=== PATIENT | female | born 1950 | race Caucasian/White ===

== ENCOUNTER → 2016-06-22 | Outpatient (CLI) | payer BC ==
[~2016-06-22] MED LIST: ACET-24 PO; AMLO-110 PO; ASCO250T5 PO; ASPEC81 PO; ATOR-24 PO; CHOL400C7 PO; CHOLTAB3 PO; CYAN250T PO; GLC/500 PO; LEVO88TA3 PO; LISI40TA PO; MULT-506 PO; RXC5 PO; SIMV40TA2 PO; SNK PO; TRAM-453 PO
[2016-06-22 15:18] LABS: CALCIUM 9.8 mg/dl (8.5-10.1)
[2016-06-22 15:20] LABS: ALB/GLOB RATIO 1.3 (0.9-2); ALKALINE PHOSPHATASE 69 U/L (45-117); ALT/SGPT 25 U/L (12-78); AST/SGOT 17 U/L (15-37); BLOOD UREA NITROGEN 16 mg/dl (7-18); BUN/CREATININE RATIO 15.9 (10-20); CARBON DIOXIDE 31 mmol/L (21-32); CHLORIDE 102 mmol/L (98-107); GLUCOSE 100 mg/dl (70-99); SODIUM 141 mmol/L (136-145)
[2016-06-22 15:21] LABS: ESTIMATED AVERAGE GLUCOSE 120 mg/dl; HA1C FLAG Normal (Normal)
[2016-06-22 15:31] LABS: THYROID STIMULATING HORMONE 0.805 uIu/ml (0.300-4.500)
== END | disposition home or self-care (01) ==
LOC: C.LABBC 11:02
PROVIDERS: ATTEND Family Medicine
DX: E11.9 Type 2 diabetes mellitus without complications (principal); I10 Essential (primary) hypertension; E03.9 Hypothyroidism, unspecified

== ENCOUNTER → 2016-07-01 | Outpatient (CLI) | payer BC | END | disposition home or self-care (01) | LOC: C.PAPS 15:20 | PROVIDERS: ATTEND Obstetrics & Gynecology | DX: Z12.4 Encounter for screening for malignant neoplasm of cervix (principal) ==

== ENCOUNTER 2016-10-13 10:16 | Inpatient (IN) | payer OTHER, BC ==
[~2016-10-13] VITALS: Ht 167.6 cm; Wt 77.9 kg
[~2016-10-13 10:16] MED LIST changes: -ACET-24 PO; -ASPEC81 PO; -ATOR-24 PO; -CHOL400C7 PO; -CYAN250T PO; -RXC5 PO; -SNK PO; -TRAM-453 PO
[2016-10-13] MEDS ORDERED: MoRPHine SULFATE 4 MG/ML 1 ML CARP\\VIAL IV STA (10:37)
[2016-10-13] MEDS ORDERED: CHOL400C7 PO (10:40)
[2016-10-13 10:48] LABS: BASO % 0.3 %; BASO ABS # 0.02 K/uL (0-0.2); COMPLETE YES; EOS % 1.4 %; HEMATOCRIT 38.5 % (37-47); IG% 0.5 %; LYMPH % 33.6 %; LYMPH ABS # 2.55 K/uL (1.2-3.4); MEAN CELL VOLUME 90.4 fL (80-100); MEAN CORPUSCULAR HGB CONC 33.2 g/dl (32-36); MEAN PLATELET VOLUME 10.2 fL (7.4-10.4); MONO % 6.5 %; NEUT % 57.7 %; PLATELET COUNT 285 K/uL (130-400); RED BLOOD COUNT 4.26 M/uL (4.2-5.4); WHITE BLOOD COUNT 7.59 K/uL (4.8-10.8)
[2016-10-13 10:55] LABS: PROTHROMBIN TIME (PATIENT) 10.6 SECONDS (9.0-12.0)
[2016-10-13 10:59] LABS: CALCIUM 9.4 mg/dl (8.5-10.1); CREATININE 1.1 mg/dl (0.60-1.20); POTASSIUM 3.9 mmol/L (3.5-5.1)
--- NOTE | 2016-10-13 11:02 | EMERGENCY ROOM VISIT NOTE ---
History Report prepared by Jacques: Jodi Chairez Under the Supervision of: Dr. Alex Chauhan M.D. First contact with patient: 10:23 Chief Complaint: HIP PAIN Stated Complaint: LT HIP PAIN/ S/P FALL History of Present Illness The patient is a 66 year old female who presents to the Emergency Room with complaints of an episode of left hip pain starting an hour ago. 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 The patient states that she then fell onto her left side on the concrete. The patient states that movement worsens her pain. She states that she was unable to walk after the fall. She currently rates her pain as a 6/10 in severity. The patient denies loss of consciousness, abdominal pain, numbness, tingling, weakness, and being on any blood thinners. Source of History: patient Onset: an hour ago Position: other (left hip) Symptom Intensity: 6/10 Timing: other (episode) Modifying Factors (Worsening): movement Associated Symptoms: No LOC, No abdominal pain, No weakness, No numbness Note: The patient denies tingling and taking blood thinners. Review of Systems See HPI for pertinent positives and negatives. A total of ten systems were reviewed and were otherwise negative. Past Medical & Surgical Medical Problems: (1) Diabetes (2) Herniated disc (3) Hip fracture (4) HTN (hypertension) (5) Hypothyroid (6) TIA (transient ischemic attack) Surgical Problems: (1) Hx of cholecystectomy Family History No pertinent family history Social History Smoking Status: Former Smoker Smokeless Tobacco Use: No Alcohol Use: none Drug Use: none Marital Status: Housing Status: lives with family Occupation Status: other Current/Historical Medications Scheduled Amlodipine (Norvasc), 5 MG PO DAILY Ascorbic Acid (Ascorbic Acid), 250 MG PO DAILY Cholecalciferol (Vitamin D 400 Iu), 400 INTER.UNIT PO DAILY Levothyroxine Sodium (Levothyroxine Sodium), 88 MCG PO DAILY Lisinopril (Zestril), 40 MG PO DAILY Metformin Hcl (Glucophage), 1,000 MG PO BID Multivitamin (Multivitamin), 1 TAB PO DAILY Simvastatin (Zocor), 40 MG PO QPM Allergies Coded Allergies: No Known Allergies (Verified , 10/13/16) Physical Exam Vital Signs Date Time Temp Pulse Resp B/P (MAP) Pulse Ox O2 Delivery O2 Flow Rate FiO2 10/13/16 12:13 91 18 148/91 98 Room Air 10/13/16 11:10 81 16 148/91 100 Room Air 10/13/16 10:23 37.1 82 18 148/91 100 Room Air Physical Exam GENERAL: Awake, alert, well-appearing, NAD HENT: Normocephalic, atraumatic. No ecchymosis. EYES: Normal conjunctiva. Sclera non-icteric. EOM intact. NECK: Supple. No nuchal rigidity. FROM. No midline c-spine tenderness. RESPIRATORY: CTAB, no rhonchi, wheezing, crackles CARDIAC: RRR, no MRG ABDOMEN: Soft, NTND, BS+ MSK: No chest wall TTP, no LE edema. Mild left sided hip tenderness. Pain in hip with internal rotation. SPDP tib nerves intact ot sensory and motor. 2+ DP pulse. No other signs of trauma present. No ttp else where. NEURO: GCS 15, CN 2-12 intact, moves all 4s on command SKIN: No rash or jaundice noted. Medical Decision & Procedures ER Provider Diagnostic Interpretation: Radiology results as stated below per my review and radiologist interpretation: LEFT PELVIS/UNILATERAL HIP 2-3VIEWS CLINICAL HISTORY: L sided hip pain s/p fall COMPARISON STUDY: None. FINDINGS: Left femoral neck fracture with mild superior displacement. No dislocation. The visualized pelvic bones and right hip are intact. IMPRESSION: Slightly displaced left femoral neck fracture. Electronically signed by: Maciel Naik M.D. 10/13/2016 11:01 AM Dictated Date/Time: 10/13/2016 10:59 AM Laboratory Results 10/13/16 10:26 Red Blood Count 4.26, Mean Corpuscular Volume 90.4, Mean Corpuscular Hemoglobin 30.0, Mean Corpuscular Hemoglobin Concent 33.2, Mean Platelet Volume 10.2, Neutrophils (%) (Auto) 57.7, Lymphocytes (%) (Auto) 33.6, Monocytes (%) (Auto) 6.5, Eosinophils (%) (Auto) 1.4, Basophils (%) (Auto) 0.3, Neutrophils # (Auto) 4.38, Lymphocytes # (Auto) 2.55, Monocytes # (Auto) 0.49, Eosinophils # (Auto) 0.11, Basophils # (Auto) 0.02 10/13/16 10:26 Test 10/13/16 10:26 10/13/16 11:00 10/13/16 11:22 White Blood Count 7.59 K/uL (4.8-10.8) Red Blood Count 4.26 M/uL (4.2-5.4) Hemoglobin 12.8 g/dL (12.0-16.0) Hematocrit 38.5 % (37-47) Mean Corpuscular Volume 90.4 fL (80-100) Mean Corpuscular Hemoglobin 30.0 pg (25-34) Mean Corpuscular Hemoglobin Concent 33.2 g/dl (32-36) Platelet Count 285 K/uL (130-400) Mean Platelet Volume 10.2 fL (7.4-10.4) Neutrophils (%) (Auto) 57.7 % Lymphocytes (%) (Auto) 33.6 % Monocytes (%) (Auto) 6.5 % Eosinophils (%) (Auto) 1.4 % Basophils (%) (Auto) 0.3 % Neutrophils # (Auto) 4.38 K/uL (1.4-6.5) Lymphocytes # (Auto) 2.55 K/uL (1.2-3.4) Monocytes # (Auto) 0.49 K/uL (0.11-0.59) Eosinophils # (Auto) 0.11 K/uL (0-0.5) Basophils # (Auto) 0.02 K/uL (0-0.2) RDW Standard Deviation 42.3 fL (36.4-46.3) RDW Coefficient of Variation 12.9 % (11.5-14.5) Immature Granulocyte % (Auto) 0.5 % Immature Granulocyte # (Auto) 0.04 K/uL (0.00-0.02) Activated Partial Thromboplast Time 24.7 SECONDS (21.0-31.0) Partial Thromboplastin Ratio 1.0 Anion Gap 7.0 mmol/L (3-11) Est Creatinine Clear Calc Drug Dose 53.0 ml/min Estimated GFR () 60.6 Estimated GFR (Non- 52.3 BUN/Creatinine Ratio 13.0 (10-20) Calcium Level 9.4 mg/dl (8.5-10.1) 25-Hydroxy Vitamin D Total 42.4 ng/ml (30-100) Hepatitis C Antibody Screen NEG (NEG) Urine Color YELLOW Urine Appearance CLEAR (CLEAR) Urine pH 5.0 (4.5-7.5) Urine Specific [place] 1.019 (1.000-1.030) Urine Protein NEG (NEG) Urine Glucose (UA) NEG (NEG) Urine Ketones NEG (NEG) Urine Occult Blood NEG (NEG) Urine Nitrite NEG (NEG) Urine Bilirubin NEG (NEG) Urine Urobilinogen NEG (NEG) Urine Leukocyte Esterase NEG (NEG) Prothrombin Time 10.5 SECONDS (9.0-12.0) Prothromb Time International Ratio 1.0 (0.9-1.1) Laboratory results reviewed by me Medications Administered Medications (Trade) Dose Ordered Sig/Shayla Route Start Time Stop Time Status Last Admin Dose Admin Morphine Sulfate (MoRPHine SULFATE INJ) 4 mg NOW STAT IV 10/13/16 10:37 10/13/16 10:47 DC 10/13/16 10:45 4 MG ECG Indication: other (fall) Rate (beats per minute): 76 Rhythm: normal sinus Findings: other (normal QRS and TN intervals, normal axis, no STS changes or TWI, ? T wave flattening inferiorly lead 3) ED Course 1026: The patient was evaluated in room A4B. A complete history and physical exam was performed. 1037: Ordered Morphine Sulfate 4 mg IV. 1121: I updated the patient on her test results. 1125: Discussed the patient's case with U. The patient will be evaluated for further treatment and disposition. Medical Decision The patient is a 66 year old female who presents to the Emergency Room with complaints of an episode of left hip pain starting an hour ago. The patient has a history of DM, HTN, hypothyroidism, and a herniated disc in her back. She takes vitamin D regularly. Differential diagnoses include a fracture, sprain, strain, dislocation. Patient was noted to have a left femoral neck fracture. Patient was neurovascularly intact. Patient was made nothing by mouth a [facility] was placed EKG was obtained. Orthopedics was called and they agreed to see the patient would likely treat operatively. Patient was admitted to the orthopedic service. Medication Reconcilliation Current Medication List: was personally reviewed by me Blood Pressure Screening Patient's blood pressure: Elevated blood pressure Blood pressure disposition: Elevated BP felt to be situational Consults Time Called: 1121 Consulting Physician: Johnnie Frazier Returned Call: 1125 Discussed the patient's case with [facility]. The patient will be evaluated for further treatment and disposition. Impression Primary Impression: Fracture of femoral neck, right Additional Impression: Fall Scribe Attestation The scribe's documentation has been prepared under my direction and personally reviewed by me in its entirety. I confirm that the note above accurately reflects all work, treatment, procedures, and medical decision making performed by me. Departure Information Dispostion Being Evaluated By Surgeon Referrals Patel Coyle, D.O.Int.Med. (PCP) Patient Instructions My [facility] Problem Qualifiers
[2016-10-13 11:36] LABS: URINE APPEARANCE CLEAR (CLEAR); URINE BILIRUBIN NEG (NEG); URINE COLOR YELLOW; URINE NITRITE NEG (NEG); URINE SPECIFIC GRAVITY 1.019 (1.000-1.030); UROBILINOGEN NEG (NEG); ZZURINE CULT IF INDIC CATH NO
[2016-10-13 11:38] LABS: MANUAL MICROSCOPIC REQUIRED? NO; REVIEW REQ? NO
[2016-10-13 11:50] LABS: PROTHROMBIN TIME (PATIENT) 10.5 SECONDS (9.0-12.0)
[2016-10-13] MEDS ORDERED: NALOXONE HCL 0.4 MG/1 ML VIAL/CARP IV PRN (12:45)
[2016-10-13] MEDS ORDERED: ONDANSETRON INJ 2 MG/ML 2 ML VIAL IV PRN (12:45)
[2016-10-13] MEDS ORDERED: MoRPHine SULFATE 2 MG/ML CARP IV PRN (12:45)
[2016-10-13] MEDS ORDERED: MoRPHine SULFATE 4 MG/ML 1 ML CARP\\VIAL ONE (12:57)
--- NOTE | 2016-10-13 13:00 | Medical Student: [facility] ---
Consultation Date of Consultation: Oct 13, 2016. History of Present Illness Yulisa Bernal is a 66 you female, with PMHx of HTN, "premature heart beat," hypercholesterolemia, osteopenia, and pre-DM, presented to the ED today complaining of sudden onset left hip pain secondary to witnessed, ground-level fall at work just prior to arrival. 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 She denies hitting her head, loss of consciousness, or gaps in memory pertaining to event. Patient states she was unable to get up off the floor immediately after the fall as her left leg was externally rotated and she could not internally rotate it at the hip to stand. She reports ability to sit up and wait for EMS transport to the ED. Patient describes pain as a dull 3-4/10, non-radiating left hip pain while at rest/ laying in bed, which worsens to a 8-9/10 pain with movement of the hip. Patient notes associated left forearm pain from an abrasion acquired during the fall. Patient reports having a DEXA scan through her PCP in the past few years with diagnosis of osteopenia; she reports taking vitamin D, B12, and calcium supplements. Patient denies chest pain, shortness of breath (at rest or while at work doing physical labor), swelling of extremities, cough, fever, chills, weakness prior to fall, tingling/numbness in extremities, and any other pain not previously mentioned. Past Medical/Surgical History Medical History: HTN, hypothyroidism, hypercholesterolemia, "pre-diabetes," osteopenia Surgical History: Cholecystectomy (09/2014), cyst on left ovary removed x10 years, x41 years Family History T2DM: maternal grandmother, father, brother x2 HTN: father, brother Lung cancer: mother ( at 68, smoker) Stroke? Father had AAA repair, was given vitamin K in post-op, which caused stroke ( at 74) Social History Smoking Status: Former Smoker History of Alcohol Use: No Drug Use: none Marital Status: Housing Status: lives with family Occupation Status: employed Review of Systems Constitutional: No fever, No chills, No sweats, No weakness, No fatigue Eyes: No worsening of vision, No eye pain ENT: No hearing loss, No nasal symptoms, No sore throat Respiratory: No cough, No shortness of breath, No dyspnea on exertion Cardiac: No chest pain, No edema, No palpitations Abdomen: No pain, No nausea, No vomiting, No diarrhea (at baseline since cholecystectomy), No constipation Musculoskeletal: + joint pain (left hip pain), No muscle pain Female : No dysuria, No urinary frequency, No incontinence Neurologic: No memory loss, No weakness, No numbness/tingling, No vertigo Psychiatric: No anxiety, No substance abuse Heme: No abnormal bleeding/bruising, No night sweats Endo: No fatigue Skin: + new/changing skin lesions (abrasion to left forearm), No rash, No itch Allergies Coded Allergies: No Known Allergies (Verified , 10/13/16) Medications Current Inpatient Medications Medications (Trade) Dose Ordered Sig/Shayla Route Start Time Stop Time Status Last Admin Dose Admin Cefazolin Sodium 2000 mg/Dextrose 60 ml @ 120 mls/hr PREOP IV 10/14/16 06:00 10/15/16 05:59 UNV Ondansetron HCl (Zofran Inj) 4 mg Q6H PRN IV 10/13/16 12:45 11/12/16 12:44 UNV Morphine Sulfate (MoRPHine SULFATE INJ) 2 mg Q2H PRN IV 10/13/16 12:45 10/27/16 12:44 UNV Morphine Sulfate (MoRPHine SULFATE INJ) 4 mg Q2H PRN IV 10/13/16 12:45 10/27/16 12:44 UNV Naloxone HCl (Narcan Inj) 0.1 mg PRN PRN IV 10/13/16 12:45 11/12/16 12:44 UNV Ergocalciferol (Vitamin D Cap) 50,000 interunit ONE ONCE PO 10/13/16 12:45 10/13/16 12:46 UNV Physical Exam Date Time Temp Pulse Resp B/P (MAP) Pulse Ox O2 Delivery O2 Flow Rate FiO2 10/13/16 12:13 91 18 148/91 98 Room Air 10/13/16 11:10 81 16 148/91 100 Room Air 10/13/16 10:23 37.1 82 18 148/91 100 Room Air General Appearance: WD/WN, + mild distress Eyes: bilateral eyes normal inspection, bilateral eyes PERRL ENT: normal ENT inspection, hearing grossly normal, TMs normal, pharynx normal Neck: supple, no adenopathy Respiratory: chest non-tender, lungs clear, normal breath sounds, no respiratory distress, no accessory muscle use Cardiovascular: regular rate, rhythm, no edema Abdomen: normal bowel sounds, non tender, soft Musculoskeletal: normal tone, pertinent finding (difficulty moving left hip, able to flex/extend left ankle/knee; normal strength 5/5 upper extremities and right lower extremity) Neurologic/Psychiatric: no motor/sensory deficits, alert, normal mood/affect, oriented x 3 Skin: normal color, warm/dry, + pertinent finding (2x5cm abrasion to left forearm from fall) Lymphatic: no adenopathy LEFT PELVIS/UNILATERAL HIP 2-3VIEWS CLINICAL HISTORY: L sided hip pain s/p fall COMPARISON STUDY: None. FINDINGS: Left femoral neck fracture with mild superior displacement. No dislocation. The visualized pelvic bones and right hip are intact. IMPRESSION: Slightly displaced left femoral neck fracture. Laboratory Results Last 24 Hours Test 10/13/16 10:26 10/13/16 11:00 10/13/16 11:22 10/13/16 12:38 White Blood Count 7.59 K/uL Red Blood Count 4.26 M/uL Hemoglobin 12.8 g/dL Hematocrit 38.5 % Mean Corpuscular Volume 90.4 fL Mean Corpuscular Hemoglobin 30.0 pg Mean Corpuscular Hemoglobin Concent 33.2 g/dl Platelet Count 285 K/uL Mean Platelet Volume 10.2 fL Neutrophils (%) (Auto) 57.7 % Lymphocytes (%) (Auto) 33.6 % Monocytes (%) (Auto) 6.5 % Eosinophils (%) (Auto) 1.4 % Basophils (%) (Auto) 0.3 % Neutrophils # (Auto) 4.38 K/uL Lymphocytes # (Auto) 2.55 K/uL Monocytes # (Auto) 0.49 K/uL Eosinophils # (Auto) 0.11 K/uL Basophils # (Auto) 0.02 K/uL RDW Standard Deviation 42.3 fL RDW Coefficient of Variation 12.9 % Immature Granulocyte % (Auto) 0.5 % Immature Granulocyte # (Auto) 0.04 K/uL Prothrombin Time 10.6 SECONDS 10.5 SECONDS Prothromb Time International Ratio 1.0 1.0 Activated Partial Thromboplast Time 24.7 SECONDS Partial Thromboplastin Ratio 1.0 Sodium Level 140 mmol/L Potassium Level 3.9 mmol/L Chloride Level 104 mmol/L Carbon Dioxide Level 29 mmol/L Anion Gap 7.0 mmol/L Blood Urea Nitrogen 14 mg/dl Creatinine 1.10 mg/dl Est Creatinine Clear Calc Drug Dose 53.0 ml/min Estimated GFR () 60.6 Estimated GFR (Non- 52.3 BUN/Creatinine Ratio 13.0 Random Glucose 111 mg/dl Calcium Level 9.4 mg/dl Urine Color YELLOW Urine Appearance CLEAR Urine pH 5.0 Urine Specific [place] 1.019 Urine Protein NEG Urine Glucose (UA) NEG Urine Ketones NEG Urine Occult Blood NEG Urine Nitrite NEG Urine Bilirubin NEG Urine Urobilinogen NEG Urine Leukocyte Esterase NEG Assessment & Plan Yulisa Bernal is a 66 yo female, with PMHx of HTN, pre-diabetes, osteopenia, hypothyroid, and hypercholesterolemia, who presented to the ED with sudden onset left hip pain immediately following ground level fall at work this morning just prior to arrival. X-ray of left hip showed slightly displaced left femoral neck fracture. This is a low risk patient for a medium risk surgery (orthopaedic repair of left hip, general anesthesia), with RCRI of 0.4% chance of major cardiac event (class I risk). Patient's EKG in ED showed NSR, with no pathologic Q waves or history of prior UT. Patient denies exertional dyspnea, history of cardiac disease, and history of CHF. Patient has low risk of SABA with the STOP-BANG criteria. Stopping the patient's lisinopril the day of surgery to help prevent intraoperative hypotension is recommended. Patient is a former smoker, incentive inspiratory spirometry is recommended before and after surgery. Patient is cleared medically for admission to [facility] for orthopaedic surgery on her left hip.
[2016-10-13 13:15] VITALS: O2SAT 96; Ht 167.6 cm; Wt 77.9 kg
[2016-10-13] MEDS ORDERED: D5W AND 1/2NSS 1,000 ML IV SCH (13:18)
[2016-10-13 13:57] VITALS: BP 117/67; PULSE 88; TEMP 36.9; O2SAT 97
[2016-10-13] MEDS ORDERED: ERGOCALCIFEROL 50,000 INTER.UNIT CAP PO ONE (14:00)
--- NOTE | 2016-10-13 14:23 | Medical Consult ---
Consultation Date of Consultation: Oct 13, 2016. Attending Physician: Kaiden Amaral M.D. 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 Imaging confirms a displaced left femoral neck fracture. She denies preceding symptoms such as SOB, CP, lightheadedness or palpitations. A medical consult was requested for pre-op evaluation. Past Medical/Surgical History Medical Problems: (1) Fall Status: Acute (2) Fracture of femoral neck, right Status: Acute Family History No pertinent family history Social History Smoking Status: Former Smoker Smokeless Tobacco Use: No Drug Use: none Marital Status: Housing Status: lives with family Occupation Status: employed Allergies Coded Allergies: No Known Allergies (Verified , 10/13/16) Current Inpatient Medications Current Inpatient Medications Medications (Trade) Dose Ordered Sig/Shayla Route Start Time Stop Time Status Last Admin Dose Admin Ondansetron HCl (Zofran Inj) 4 mg Q6H PRN IV 10/13/16 12:45 11/12/16 12:44 Morphine Sulfate (MoRPHine SULFATE INJ) 2 mg Q2H PRN IV 10/13/16 12:45 10/27/16 12:44 Morphine Sulfate (MoRPHine SULFATE INJ) 4 mg Q2H PRN IV 10/13/16 12:45 10/27/16 12:44 Naloxone HCl (Narcan Inj) 0.1 mg PRN PRN IV 10/13/16 12:45 11/12/16 12:44 Sodium Chloride 1,000 ml @ 75 mls/hr [id number] IV 10/13/16 14:00 11/12/16 13:59 Cefazolin Sodium 60 ml @ 100 mls/hr PREOP IV 10/14/16 06:00 10/14/16 18:00 Review of Systems Constitutional: No fever, No chills, No sweats Eyes: No worsening of vision, No eye pain ENT: No hearing loss, No unusual epistaxis, No nasal symptoms Respiratory: No cough, No sputum, No wheezing Cardiovascular: No chest pain, No orthopnea, No PND Abdomen: No pain, No nausea, No vomiting Musculoskeletal: + joint pain, No muscle pain Genitourinary - Female: No dysuria, No urinary frequency, No urinary urgency, No urinary incontinence Neurologic: + paralysis, + weakness, No memory loss Psychiatric: + depression symptoms Endocrine: + fatigue Hematologic / Lymphatic: + abnormal bleeding/bruising Integumentary: + rash Allergic / Immunologic: + environmental allergies Physical Exam Date Time Temp Pulse Resp B/P (MAP) Pulse Ox O2 Delivery O2 Flow Rate FiO2 10/13/16 13:57 36.9 88 16 117/67 (84) 97 Room Air 10/13/16 13:15 96 Room Air 10/13/16 13:13 101 18 143/73 96 10/13/16 12:13 91 18 148/91 98 Room Air 10/13/16 11:10 81 16 148/91 100 Room Air 10/13/16 10:23 37.1 82 18 148/91 100 Room Air Laboratory Results Last 24 Hours Test 10/13/16 10:26 10/13/16 11:00 10/13/16 11:22 White Blood Count 7.59 K/uL Red Blood Count 4.26 M/uL Hemoglobin 12.8 g/dL Hematocrit 38.5 % Mean Corpuscular Volume 90.4 fL Mean Corpuscular Hemoglobin 30.0 pg Mean Corpuscular Hemoglobin Concent 33.2 g/dl Platelet Count 285 K/uL Mean Platelet Volume 10.2 fL Neutrophils (%) (Auto) 57.7 % Lymphocytes (%) (Auto) 33.6 % Monocytes (%) (Auto) 6.5 % Eosinophils (%) (Auto) 1.4 % Basophils (%) (Auto) 0.3 % Neutrophils # (Auto) 4.38 K/uL Lymphocytes # (Auto) 2.55 K/uL Monocytes # (Auto) 0.49 K/uL Eosinophils # (Auto) 0.11 K/uL Basophils # (Auto) 0.02 K/uL RDW Standard Deviation 42.3 fL RDW Coefficient of Variation 12.9 % Immature Granulocyte % (Auto) 0.5 % Immature Granulocyte # (Auto) 0.04 K/uL Prothrombin Time 10.6 SECONDS 10.5 SECONDS Prothromb Time International Ratio 1.0 1.0 Activated Partial Thromboplast Time 24.7 SECONDS Partial Thromboplastin Ratio 1.0 Sodium Level 140 mmol/L Potassium Level 3.9 mmol/L Chloride Level 104 mmol/L Carbon Dioxide Level 29 mmol/L Anion Gap 7.0 mmol/L Blood Urea Nitrogen 14 mg/dl Creatinine 1.10 mg/dl Est Creatinine Clear Calc Drug Dose 53.0 ml/min Estimated GFR () 60.6 Estimated GFR (Non- 52.3 BUN/Creatinine Ratio 13.0 Random Glucose 111 mg/dl Calcium Level 9.4 mg/dl 25-Hydroxy Vitamin D Total 42.4 ng/ml Urine Color YELLOW Urine Appearance CLEAR Urine pH 5.0 Urine Specific [place] 1.019 Urine Protein NEG Urine Glucose (UA) NEG Urine Ketones NEG Urine Occult Blood NEG Urine Nitrite NEG Urine Bilirubin NEG Urine Urobilinogen NEG Urine Leukocyte Esterase NEG Assessment & Plan 66 y/o F Hx HTN - 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 Imaging confirms a displaced left femoral neck fracture. She denies preceding symptoms such as SOB, CP, lightheadedness or palpitations. 1) Pre-op - pts RCRI is 0.4% - she does not have significant cardiac risk factors and has fared well with prior procedures. She can proceed to surgery without further workup. 2) HTN cont Norvasc - hold MARIA pending AM labs and reassessment. 3) DM - she is pre-diabetic and unlikely to require insulin - would hold Metformin pending DC Total time for this admit including review of labs, records, imaging, EKG - discussion with pt and ER attending - 33 min
[2016-10-13] MEDS: SODIUM CHLORIDE 0.9% 1000ML 1,000 ML IV SCH (14:27)
[2016-10-13 15:03] VITALS: BP 120/70; PULSE 85; TEMP 36.8; O2SAT 94
[2016-10-13] MEDS: MoRPHine SULFATE 4 MG/ML 1 ML CARP\\VIAL IV PRN ×4 (15:08→23:25)
--- NOTE | 2016-10-13 17:24 | HISTORY & PHYSICAL EXAMINATION ---
DATE OF ADMISSION: 10/13/2016 CHIEF COMPLAINT: Pain in left hip. HISTORY OF PRESENT ILLNESS: The patient is a 66-year-old white female who was working today at her place of employment. She was helping unload a [employer] trailer of [employer]. She states that she had cut off some of the plastic wrapping that was surrounding the palate that they were unloading. At that point in time, she grabbed several boxes and then turned to walk away. Her foot got caught in the plastic wrapping and she ended up falling onto the ground onto her left side. She says she fell very hard and that no other boxes fell on top of her. She had immediate pain in the left hip and groin and had difficulty ambulating and was brought to the Emergency Room. She was seen by the staff, x-rays were taken and it was found that she had a displaced left femoral neck fracture. She states she had no prior hip pain in that hip prior to the fall. After reviewing the films with Dr. Amaral, it was felt that screw fixation would not be possible and that she would require a total hip arthroplasty due to her young age. She denies hitting her head during the fall. She denies loss of consciousness or shortness of breath or chest pain before or after the fall. PAST MEDICAL HISTORY: Diabetes mellitus type 2, hypertension, hypothyroidism and hypercholesterolemia. PAST SURGICAL HISTORY: Cholecystectomy, removal of dermoid cyst on ovary many years ago, , and colonoscopy. FAMILY HISTORY: Diabetes mellitus, hypertension and lung carcinoma. SOCIAL HISTORY: The patient is a former smoker, no longer smokes and is . She does not use alcohol. ALLERGIES: NKDA. MEDICATIONS: Amlodipine 5 mg p.o. daily, vitamin C 250 mg p.o. daily, vitamin D 400 international units p.o. daily, levothyroxine 88 mcg p.o. daily, lisinopril 40 mg p.o. daily, Glucophage 1000 mg p.o. b.i.d., multivitamin 1 tab p.o. daily, and simvastatin 40 mg p.o. q.p.m. REVIEW OF SYSTEMS: No recent fevers, chills, night sweats, unexplained weight loss or weight gain. No flu or cold-like symptoms. No increased cough or sputum production. No shortness of breath on exertion or at rest. No chest pain, chest pressure, irregular heartbeat. No abdominal pain. No unusual nausea, vomiting or diarrhea. Denies history of hematemesis, melena, and hematochezia. No history of hematuria, pyuria, dysuria or renal calculi. No history of CVA, TIA, or seizure disorder. PHYSICAL EXAMINATION: RECENT VITAL SIGNS: Temp 36.8, pulse 85, respirations 18, BP 120/70, pulse ox 94% on room air. GENERAL: The patient is a well-developed, well-nourished white female who is alert and oriented x3 in no acute distress, pleasant and cooperative. SKIN: Warm and dry. Turgor is good. HEENT: Head is normocephalic and atraumatic. There is no scleral icterus or injection. Pupils are equal. Nasal airway is patent. Oral mucosa is pink and moist. NECK: Supple. HEART: Regular rate and rhythm. LUNGS: Clear to auscultation without rales, rhonchi or wheezes. ABDOMEN: Soft, round and nontender. Bowel sounds are present x4. GENITALIA AND RECTAL: Not performed at this time. EXTREMITIES: On examination of the patient's left lower extremity, she is mildly shortened and externally rotated on the left lower extremity compared to right. She had mild pain with internal and external rotation and had moderate pain with mild flexion. The patient was having some discomfort with abduction and adduction in the left hip and groin as well. Left knee is nontender on palpation, as well as his left ankle and has good range of motion of the left ankle and toes. No attempts were made to her range of motion of the left knee secondary to left hip fracture. Right lower extremity is essentially nontender and has good range of motion throughout. Upper extremities are benign and range of motion is within normal limits. Distal pulses are equal bilaterally of the upper and lower extremities. There are no gross motor or sensory deficits seen at this time. Neck is nontender on palpation and she has good range of motion. She denies any thoracic back pain at this time and/or lumbar pain but states has a history of a herniated disk that flares up off and on that goes down her left side with radiculopathy. ASSESSMENT: Displaced left femoral neck fracture. PLAN: The patient will be taken to the operating room tomorrow for a left total hip arthroplasty by Dr. Amaral.
--- NOTE | 2016-10-13 18:01 | DIAGNOSTIC IMAGING REPORT ---
CHEST ONE VIEW PORTABLE HISTORY: 66 years-old Female preoperative exam. No chest complaints. COMPARISON: Chest radiograph 09/16/2014 TECHNIQUE: Portable upright AP view of the chest FINDINGS: Chronic reticular opacities are present within the medial lung apices bilaterally, unchanged. Cardiomediastinal and hilar silhouettes are within normal limits. No pneumothorax, pleural effusion or new focal airspace consolidation. There is no overt pulmonary edema. Moderate degenerative changes involving the AC joints bilaterally. Cholecystectomy clips are seen. There is atherosclerosis of the aorta. IMPRESSION: No acute cardiopulmonary process. The above report was generated using voice recognition software. It may contain grammatical, syntax or spelling errors. Electronically signed by: Francisco Jim M.D. 10/13/2016 6:00 PM Dictated Date/Time: 10/13/2016 5:58 PM
[2016-10-13 23:15] VITALS: BP 121/70; PULSE 88; TEMP 37.1; O2SAT 92
[2016-10-14] VITALS (9 sets, daily range): BP systolic 100–138; BP diastolic 62–78; PULSE 63–88; TEMP 36.6–37.2; O2SAT 92–97
[2016-10-14] MEDS ORDERED: NURSING DECISION MEDICATION ORDER SCH (01:15)
[2016-10-14] MEDS: MoRPHine SULFATE 4 MG/ML 1 ML CARP\\VIAL IV PRN ×2 (01:37→03:56)
[2016-10-14] MEDS: SODIUM CHLORIDE 0.9% 1000ML 1,000 ML IV SCH ×3 (03:29→18:27)
[2016-10-14] MEDS ORDERED: CEFAZOLIN 2000 MG/60 ML D5W IV SCH (06:00)
[2016-10-14] MEDS ORDERED: CEFAZOLIN IV 2,000 MG in DEXTROSE 5% 50ML 50 ML IV SCH (06:00)
[2016-10-14] MEDS ORDERED: BUPIVACAINE 0.5 % 5 MG/1 ML PF 10ML VIAL ONE (06:36)
[2016-10-14] MEDS ORDERED: BACITRACIN 50000 UNIT VIAL ONE (06:52)
[2016-10-14] MEDS ORDERED: POVIDONE-IODINE OP SOLN 30 ML BTL ONE (06:52)
[2016-10-14] MEDS ORDERED: MIDAZOLAM HCL 1 MG/ML 2ML VIAL ONE (06:58)
[2016-10-14] MEDS ORDERED: FENTANYL CITRATE INJ 50 MCG/1 ML 2 ML VIAL ONE (06:59)
[2016-10-14] MEDS ORDERED: ONDANSETRON INJ 2 MG/ML 2 ML VIAL ONE (07:06)
[2016-10-14] MEDS ORDERED: KETAMINE HCL INJ 50 MG/ML 10 ML VIAL ONE (07:11)
[2016-10-14] MEDS ORDERED: NURSING VERBAL MED ORDER ONE (07:15)
[2016-10-14] MEDS ORDERED: PROPOFOL IV EMULSION 10 MG/ML 20 ML VIAL IV ONE ×2 (07:19→08:44)
--- NOTE | 2016-10-14 07:21 | History & Physical Bridge Note ---
H&P Re-Evaluation Bridge Note: I have examined the patient, reviewed the History & Physical and in the interval since the performance of the History & Physical I have noted the following changes of clinical significance: No changes noted
[2016-10-14] MEDS: TRANEXAMIC ACID INJ 1,000 MG in SODIUM CHLORIDE 0.9% 100ML 100 ML IV SCH ×2 (07:24→10:55)
[2016-10-14] MEDS ORDERED: ROPIVACAINE 5MG/ML 30 ML 150 MG, BUPIVACAINE/EPINEPHR 0.5% MPF 30 ML, KETOROLAC TROMETH... INFIL SCH ×7 (07:30)
[2016-10-14] MEDS ORDERED: EpHEDrine SULFATE INJ 50 MG/ML AMP IV PRN (08:15)
[2016-10-14] MEDS ORDERED: ATROPINE SULFATE 0.1 MG/ML 5ML SYR IV PRN (08:15)
[2016-10-14] MEDS ORDERED: ONDANSETRON INJ 2 MG/ML 2 ML VIAL IV PRN (08:15)
[2016-10-14] MEDS ORDERED: LIDOCAINE HCL 2% 2 ML VIAL (20MG/ML) ONE (08:44)
--- NOTE | 2016-10-14 08:49 | [facility] Post Operative Brief Note ---
Immediate Operative Summary Operative Date Oct 14, 2016. Pre-Operative Diagnosis Displaced left femoral neck fracture Post-Operative Diagnosis Displaced left femoral neck fracture Procedure(s) Performed Left Total Hip Arthroplasty Surgeon Dr. Amaral Supervisor [place] Surgeon(s) Royce Kohli PA-c Estimated Blood Loss 150 ML Findings fracture Specimens A. Left femoral head Disposition Recovery Room / PACU
[2016-10-14] MEDS ORDERED: SODIUM CHLORIDE 0.9% INJ 10 ML VIAL ONE (09:03)
[2016-10-14] MEDS ORDERED: MAGNESIUM HYDROXIDE SUSP 30 ML UDC PO PRN (09:15)
[2016-10-14] MEDS ORDERED: ALUMINUM/MAGNESIUM/SIMETH (MAALOX MAX) 30 ML UDC PO PRN (09:15)
[2016-10-14] MEDS ORDERED: BISACODYL 10 MG SUPP PR PRN (09:15)
--- NOTE | 2016-10-14 09:15 | OPERATIVE REPORT ---
DATE OF OPERATION: 10/14/2016 PREOPERATIVE DIAGNOSIS: Displaced intracapsular femoral neck fracture. POSTOPERATIVE DIAGNOSIS: Displaced intracapsular femoral neck fracture. PROCEDURE: Total hip arthroplasty. SURGEON: Dr. Kaiden Amaral. FICTION AND NONFICTION WRITER PROSE: Royce Kohli PA-C. Mr. Kohli was essential throughout all portions of the case including positioning, prepping, draping, rn neurosurgical, wound closure and dressing application. ANESTHESIA: Spinal. COMPLICATIONS: None. IMPLANTS USED: Left acetabular reamer used 52, acetabular shell 52, femoral stem 4, and femoral head -5 x 36 ceramic. DESCRIPTION OF PROCEDURE: Following induction of adequate spinal anesthesia, the patient was placed in right lateral decubitus position and left Benito-[place]en[place] incision was made. Subcutaneous tissue was sharply dissected. Electrocautery used for hemostasis. The fascia was incised throughout the length of the wound and a cabrera scissor placed beneath the short external rotators. The pyriformis was tagged with #1 Vicryl. The short external rotators were divided from the posterior aspect of the femur using electrocautery. These were swept posteriorly. A T-capsulotomy incision was made and the hip was dislocated using a combination of flexion, adduction, and internal rotation. Exposure of the femoral neck with old-style Hohmann and a blunt Hohmann was carried out and a femoral rasp was utilized as a guide for making the appropriate level femoral neck cut. This bone fragment was removed and reserved on the back table. Next, attention was turned to the acetabulum where bone hook was used to retract the femur while the offset retractors were placed anterior and posteriorly. A double-angled Hohmann was placed in superior and anterior position exposing the acetabulum nicely. Acetabular labrum as well as posterior capsule elements were removed using a long knife and a long pickup. Fovea centralis was cleared of all soft tissue. Sequential reamings were carried up to a 52 and decision was made to proceed with impaction of a 52 trabecular metal cup. This was impacted and held using a single 35 mm bone screw. The acetabular liner was placed with 15 of elevated posterior wall in the superior and posterior position. Next, attention was turned to the femoral portion of the case where a Bovie and pickup was used to further clear short external rotators from their insertion on the femur. Box osteotome was used to gain access to the femoral canal and the T-handled rasp and a rattail rasp were used to further open and lateral the canal. Sequentially raspings were carried up to a 52, which gave good fit and fill of the proximal femur. A trial reduction was carried out and 4 offset femoral neck component was chosen as the size to be used. A -5 x 36 mm femoral head was impacted into position, +0 head was utilized. The trial reduction was stable in all degrees of rotation with no [id number] impingement. The hip was dislocated. The trial components were removed and the final femoral stem, neck, and femoral head combination were assembled on the back table and impacted into position. Hip was relocated. Range of motion checked once again successful and the wound was irrigated. The pyriformis repaired to the greater trochanter using #1 Vicryl [id number] suture. A Hemovac drain was placed and the fascia was closed using #1 Vicryl, subcutaneous tissue was closed using 0 Dexon, and skin was closed with jazmine. Sterile dressing of Adaptic, 4 x 4's, ABDs, and foam tape was applied. The patient tolerated the procedure well. Due to the complex nature of the procedure, the entire surgery was performed with the operational assistance of Royce Kohli PA-C. The educational/development assistant, under direct supervision, was involved in the actual performance of all aspects of the surgical procedure including hemostasis, tissue retraction and incision, instrument management, patient positioning, and wound closure. I attest to the content of the Intraoperative Record and any orders documented therein. Any exception s are noted below.
--- NOTE | 2016-10-14 09:45 | DIAGNOSTIC IMAGING REPORT ---
AP PELVIS, CROSSTABLE LATERAL LEFT HIP History: Left total hip arthroplasty. Degenerative arthritis. Postop. FINDINGS: The patient is status post a left total hip arthroplasty. The hardware is intact. No fracture or dislocation. Skin jazmine and surgical drains are in place. IMPRESSION: Left total hip arthroplasty. No evidence for hardware complication. Electronically signed by: Maciel Naik M.D. 10/14/2016 9:43 AM Dictated Date/Time: 10/14/2016 9:43 AM
--- NOTE | 2016-10-14 10:19 | Anesthesiology Progress Note ---
Anesthesia Post Op Note Date & Time Oct 14, 2016 at 10:19 Vital Signs Pain Intensity: 0 Vital Signs Past 12 Hours Date Time Temp Pulse Resp B/P (MAP) Pulse Ox O2 Delivery O2 Flow Rate FiO2 10/14/16 09:50 36.6 65 16 101/59 99 Nasal Cannula 2 10/14/16 09:40 36.6 66 16 111/59 99 Nasal Cannula 2 10/14/16 09:30 81 16 116/60 100 Mask 10 10/14/16 09:20 70 16 108/58 100 Mask 10 10/14/16 09:11 36.4 74 16 105/71 100 Mask 10 10/14/16 06:29 37.2 88 16 137/76 (96) 92 Room Air 10/13/16 23:25 Room Air 10/13/16 23:15 37.1 88 16 121/70 (87) 92 Room Air Notes Mental Status: alert / awake / arousable, participated in evaluation Pt Amnestic to Procedure: Yes Nausea / Vomiting: adequately controlled Pain: adequately controlled Airway Patency, RR, SpO2: stable & adequate BP & HR: stable & adequate Hydration State: stable & adequate Neuraxial Anesthesia: was administered, sensory block is resolving Anesthetic Complications: no major complications apparent
[2016-10-14] MEDS: FERROUS GLUCONATE 324 MG TAB PO SCH ×2 (13:44→18:03)
[2016-10-14] MEDS: ACETAMINOPHEN 500 MG TAB PO SCH ×2 (13:44→21:34)
[2016-10-14] MEDS: CEFAZOLIN IV 1,000 MG in DEXTROSE 5% 50ML 50 ML IV SCH (16:10)
[2016-10-14] MEDS: ASPIRIN 81 MG ECTAB PO SCH (20:59)
[2016-10-14] MEDS: DOCUSATE SODIUM 100 MG CAP PO SCH (20:59)
[2016-10-15] VITALS (7 sets, daily range): BP systolic 119–153; BP diastolic 67–84; PULSE 77–89; TEMP 36.9–37.3; O2SAT 93–97
[2016-10-15] MEDS: CEFAZOLIN IV 1,000 MG in DEXTROSE 5% 50ML 50 ML IV SCH (00:04)
[2016-10-15] MEDS: OXYCODONE HCL IR 5 MG TAB (IMMEDIATE RELEASE) PO PRN ×3 (03:55→19:01)
[2016-10-15] MEDS: SODIUM CHLORIDE 0.9% 1000ML 1,000 ML IV SCH (04:37)
[2016-10-15] MEDS: ACETAMINOPHEN 500 MG TAB PO SCH ×3 (06:23→22:00)
[2016-10-15 06:58] LABS: BUN/CREATININE RATIO 12.2 (10-20); CALCIUM 8.4 mg/dl (8.5-10.1); CREATININE 0.9 mg/dl (0.60-1.20); POTASSIUM 4.4 mmol/L (3.5-5.1)
[2016-10-15 07:21] LABS: BASO % 0.1 %; BASO ABS # 0.01 K/uL (0-0.2); COMPLETE YES; EOS % 2.5 %; HEMATOCRIT 29.5 % (37-47); IG% 0.2 %; LYMPH % 19.1 %; MEAN CELL VOLUME 89.4 fL (80-100); MEAN CORPUSCULAR HGB CONC 33.6 g/dl (32-36); MEAN PLATELET VOLUME 10.3 fL (7.4-10.4); MONO % 5.7 %; NEUT % 72.4 %; PLATELET COUNT 195 K/uL (130-400); WHITE BLOOD COUNT 8.37 K/uL (4.8-10.8)
--- NOTE | 2016-10-15 08:27 | Orthopedic Progress Note ---
Orthopedic Progress Note Date of Service Oct 15, 2016. Subjective Post OP Day: 1 Reports: feeling well, Denies: chest pain, SOB, nausea / vomiting, light headedness, calf pain Objective calves soft nontender, N/V intact, hip located, dressing C/D/I, A&O x3, toes mobile, hemovac drainage (77/50 cc per shift) Date Time Temp Pulse Resp B/P (MAP) Pulse Ox O2 Delivery O2 Flow Rate FiO2 10/15/16 06:56 37.2 77 17 119/75 (90) 94 Room Air 10/15/16 03:43 36.9 88 16 151/82 (105) 95 Room Air 10/14/16 23:50 36.8 69 16 122/73 (89) 93 Room Air 10/14/16 20:35 Room Air 10/14/16 19:14 36.7 63 18 138/78 (98) 97 Room Air 10/14/16 14:56 36.6 72 18 113/68 (83) 93 Room Air 10/14/16 13:12 65 18 120/74 (89) 10/14/16 12:04 37.0 67 16 100/62 (75) 93 Nasal Cannula 2.0 10/14/16 11:11 36.9 73 16 107/67 (80) 96 Nasal Cannula 1.0 10/14/16 10:40 37.0 75 18 111/71 (84) 95 Nasal Cannula 1.0 10/14/16 10:10 37.0 75 16 103/65 (78) 96 Nasal Cannula 1.5 10/14/16 10:10 96 Nasal Cannula 1.5 10/14/16 10:10 96 Nasal Cannula 1.5 10/14/16 09:50 36.6 65 16 101/59 99 Nasal Cannula 2 10/14/16 09:40 36.6 66 16 111/59 99 Nasal Cannula 2 10/14/16 09:30 81 16 116/60 100 Mask 10 10/14/16 09:20 70 16 108/58 100 Mask 10 10/14/16 09:11 36.4 74 16 105/71 100 Mask 10 Laboratory Results 24 Hours: Test 10/15/16 05:55 White Blood Count 8.37 K/uL Red Blood Count 3.30 M/uL Hemoglobin 9.9 g/dL Hematocrit 29.5 % Mean Corpuscular Volume 89.4 fL Mean Corpuscular Hemoglobin 30.0 pg Mean Corpuscular Hemoglobin Concent 33.6 g/dl Platelet Count 195 K/uL Mean Platelet Volume 10.3 fL Neutrophils (%) (Auto) 72.4 % Lymphocytes (%) (Auto) 19.1 % Monocytes (%) (Auto) 5.7 % Eosinophils (%) (Auto) 2.5 % Basophils (%) (Auto) 0.1 % Neutrophils # (Auto) 6.05 K/uL Lymphocytes # (Auto) 1.60 K/uL Monocytes # (Auto) 0.48 K/uL Eosinophils # (Auto) 0.21 K/uL Basophils # (Auto) 0.01 K/uL Assessment & Plan Assessment: POD#1 sp left MARCIE Plan: All home meds ordered this am DC sloan cath Inhouse Planning Pain Management: PO Tylenol, Oxy IR DVT Prophylaxis: TEDs, SCDs, ASA Discharge Planning Discharge Planning: home with home health
[2016-10-15] MEDS ORDERED: MULTIVITAMIN TAB PO SCH (09:00)
[2016-10-15] MEDS: MULTIVITAMIN TAB PO SCH (09:28)
[2016-10-15] MEDS: AMLODIPINE BESYLATE 5 MG TAB PO SCH (09:28)
[2016-10-15] MEDS: CHOLECALCIFEROL 400 INTER.UNIT TAB PO SCH (09:29)
[2016-10-15] MEDS: DOCUSATE SODIUM 100 MG CAP PO SCH ×2 (09:29→20:54)
[2016-10-15] MEDS: LISINOPRIL 40 MG TAB PO SCH (09:29)
[2016-10-15] MEDS: FERROUS GLUCONATE 324 MG TAB PO SCH ×3 (09:29→18:18)
[2016-10-15] MEDS: PANTOprazole SOD 40 MG TAB PO SCH (09:30)
[2016-10-15] MEDS: ASPIRIN 81 MG ECTAB PO SCH ×2 (09:30→20:54)
[2016-10-15] MEDS: LEVOTHYROXINE 88 MCG TAB PO SCH (10:42)
[2016-10-15] MEDS ORDERED: SIMVASTATIN 40 MG TAB PO SCH (21:00)
[2016-10-16] MEDS: OXYCODONE HCL IR 5 MG TAB (IMMEDIATE RELEASE) PO PRN ×3 (01:06→12:10)
[2016-10-16] MEDS: LEVOTHYROXINE 88 MCG TAB PO SCH (05:48)
[2016-10-16] MEDS: ACETAMINOPHEN 500 MG TAB PO SCH (05:49)
[2016-10-16 06:40] VITALS: BP 125/70; PULSE 78; TEMP 37; O2SAT 94
[2016-10-16 07:51] VITALS: BP 118/64; PULSE 80; TEMP 37.2; O2SAT 93
[2016-10-16 08:09] VITALS: O2SAT 93
[2016-10-16] MEDS: FERROUS GLUCONATE 324 MG TAB PO SCH (08:21)
[2016-10-16] MEDS: DOCUSATE SODIUM 100 MG CAP PO SCH (08:22)
[2016-10-16] MEDS: MULTIVITAMIN TAB PO SCH (08:22)
[2016-10-16] MEDS: PANTOprazole SOD 40 MG TAB PO SCH (08:22)
[2016-10-16] MEDS: CHOLECALCIFEROL 400 INTER.UNIT TAB PO SCH (08:22)
[2016-10-16] MEDS: AMLODIPINE BESYLATE 5 MG TAB PO SCH (08:23)
[2016-10-16] MEDS: LISINOPRIL 40 MG TAB PO SCH (08:23)
[2016-10-16] MEDS: ASPIRIN 81 MG ECTAB PO SCH (08:23)
--- NOTE | 2016-10-16 10:28 | Orthopedic Progress Note ---
Orthopedic Progress Note Date of Service Oct 16, 2016. Subjective Post OP Day: 2 Reports: feeling well, Denies: chest pain, SOB, nausea / vomiting, light headedness, calf pain Additional Notes: Mild buttock pain when she puts moderate weight on her heel. No radiculopathy to speak of. Pain otherwise controlled. Objective calves soft nontender, N/V intact, hip located, incision C/D/I, A&O x3, toes mobile Date Time Temp Pulse Resp B/P (MAP) Pulse Ox O2 Delivery O2 Flow Rate FiO2 10/16/16 08:09 93 Room Air 10/16/16 07:51 37.2 80 20 118/64 (82) 93 Room Air 10/16/16 06:40 37.0 78 14 125/70 (88) 94 Room Air 10/15/16 23:55 Room Air 10/15/16 23:04 37.3 89 16 131/84 (100) 94 Room Air 10/15/16 15:30 Room Air 10/15/16 15:26 37.0 80 17 121/67 (85) 93 Room Air 10/15/16 11:54 37.2 84 16 124/73 (90) 97 Room Air Assessment & Plan Assessment: POD#2 sp left MARCIE Plan: Progressing well in PT Plan for dc to home today with OPPT Inhouse Planning Pain Management: PO Tylenol, Oxy IR DVT Prophylaxis: TEDs, SCDs, ASA Discharge Planning Discharge Planning: home with home health Pain Management: PO Tylenol, Oxy IR DVT Prophylaxis: TEDs, ASA Therapy: Physical Therapy
--- NOTE | 2016-10-16 10:33 | Discharge Instructions ---
Discharge Instructions Date of Service Oct 16, 2016. Admission Reason for Admission: Hip Fracture Discharge Discharge Diagnosis / Problem: Left Hip Fracture Discharge Goals Goal(s): Decrease discomfort, Improve function, Increase independence Activity Recommendations Activity Limitations: per Instructions/Follow-up section Weightbearing Status: Left weightbearing (as tolerated) . Instructions / Follow-Up Instructions / Follow-Up ACTIVITY RECOMMENDATIONS: SELF CARE INSTRUCTIONS AFTER TOTAL HIP REPLACEMENT Until the incision and soft tissues around your hip have healed, there is a possibility that the hip prosthesis could dislocate. A. Observe the following precautions to prevent dislocation: 1. Don't bend your hip greater than 90 degrees. 2. Avoid crossing your legs or ankles while standing or lying. 3. Sit with your feet placed 6 inches apart. 4. When sitting, keep your knees below your hips. Sit on a firm surface, avoid deep, soft chairs and couches. Use an elevated toilet seat in the bathroom. 5. Don't bend over at the waist. Use a long handled shoehorn and a sock aid to help you put on your shoes and socks. A planning director can help you vegetable picker objects that are too high or too low to reach. 6. Keep car riding to a minimum for at least one month after surgery. B. Your balance may be shaky for a while. Use crutches or a walker until directed by your doctor. C. Use hand rails when walking on stairs. D. Wear low heeled shoes with non-slip soles. E. Be sure that your floors are free of things that could trip you - throw rugs , electrical cords, small objects. Avoid wet and waxed floors, especially with crutches and canes. F. Try to walk several times a day with rest periods between. G. Continue with all the exercises taught to you in the hospital. Again, make walking a part of your daily routine. SPECIAL CARE INSTRUCTIONS: VERY IMPORTANT TO READ AND REVIEW A. You may still be at risk for phlebitis and blood clots. 1. Wear surgical stockings (ENRRIQUE hose) for 2 weeks after surgery to improve circulation and reduce swelling. 2. Take Aspirin 81mg twice daily for 4 weeks or as directed by your doctor. This is your blood thinner. 3. High risk patients may be prescribed a stronger blood thinner if necessary. 4. If you are on Coumadin normally, your family doctor/web content producer should monitor your blood work. Expect a phone call the day of or the day after bloodwork is drawn to adjust your dosage. B. You must take antibiotics before having dental work, bladder, bowel and other surgery. Your doctor will provide you with a permanent card to carry describing precautions. C. Call [facility] if you have a fever, redness or swelling around the incision, cloudy drainage from incision, or sudden increase in pain in your hip, not relieved by your regular pain medication. D. Please call the office at if you have any concerns or questions about your operation or recovery. * YOU MAY SHOWER, NO TUB BATHS UNTIL CLEARED BY YOUR DOCTOR. * WEAR ENRRIQUE HOSE 20 HOURS PER DAY FOR 2 WEEKS. * YOU SHOULD USE A WALKER OR CRUTCHES FOR 2-4 WEEKS. THIS WILL HELP PREVENT STRAIN ON YOUR HIP MUSCLE AND ALLOW IT TO HEAL PROPERLY. YOU MAY WEAN TO A CANE TOLERATED. * MOST PATIENTS WILL HAVE HOME NURSING FOR THERAPY. IF YOU DECIDE TO DO OUTPATIENT PHYSICAL THERAPY, PLEASE SCHEDULE THIS 3 TIMES PER WEEK. * IF YOUR WOUND IS DRY, YOU MAY LEAVE TO THE OPEN AIR. IF YOUR SARAH ARE CATCHING ON YOUR CLOTHES YOU CAN COVER THE WOUND WITH GAUZE. FOLLOW UP VISIT: If appointment is not already scheduled: Please call [facility] to make a follow-up appointment for 2 weeks after your surgery at . Current Hospital Diet Patient's current hospital diet: Diabetes Type 2 Diet Discharge Diet Recommended Diet: Diabetes Type 2 Diet Procedures Procedures Performed: Left Total Hip Arthroplasty Pending Studies Studies pending at discharge: no Medical Emergencies . Who to Call and When: Medical Emergencies: If at any time you feel your situation is an emergency, please call 911 immediately. . Non-Emergent Contact Non-Emergency issues call your: Surgeon Call Non-Emergent contact if: temperature is above 101.5, your pain is not controlled, your pain is worsening, wound has increased drainage, wound has increased redness . "Provider Documentation" section prepared by Royce Kohli. . VTE Core Measure Inpt VTE Proph given/why not?: Other Anticoagulation, T.E.D. Stockings, SCD's [place] Drug Monitoring Program Search Results: patient reviewed within database, no issues identified
[2016-10-16] MEDS ORDERED: ASPEC81 PO (10:36)
[2016-10-16] MEDS ORDERED: SNK PO (10:36)
[2016-10-16] MEDS ORDERED: ACET-24 PO (10:36)
[2016-10-16] MEDS ORDERED: RXC5 PO (10:36)
[2016-10-16 11:21] VITALS: BP 118/64; PULSE 80; TEMP 37.2; O2SAT 93
--- NOTE | 2016-10-22 00:36 | DISCHARGE SUMMARY ---
DISCHARGE DIAGNOSIS: Displaced left femoral neck fracture. SECONDARY DIAGNOSES: Diabetes mellitus type 2, hypertension, hypothyroidism, hypercholesterolemia. CONSULTS: Shay Sam MD. COMPLICATIONS: None. PROCEDURES: Left total hip arthroplasty performed by Dr. Amaral on 10/14/2016. BRIEF HISTORY: As dictated in history and physical. HOSPITAL SUMMARY: The patient was admitted on the above-noted date, and after being medically cleared, she was taken to the operating room on 10/14/2016 with the above-noted procedure performed which she tolerated well. On her first postoperative day, she was feeling well and had no complaints. Calves were soft and nontender, neurovascularly intact. Dressings clean, dry and intact. Toes were mobile. Vital signs stable and she was afebrile. Hemoglobin was 9.9 and she was started on physical therapy protocol and continued on DVT prophylaxis and pain management. By her second postoperative day, she was feeling well. She stated she had some mild buttock pain when she was putting moderate weight on her heel but had no other symptoms. She had no radiculopathy to speak of and pain was otherwise controlled. Calves were soft and nontender. Neurovascularly intact. Hip was located. Incision was benign. Toes were mobile. Vital signs were stable. She was afebrile. She was progressing well with her physical therapy and remaining stable medically and orthopedically and it was felt she could be discharged to home with home health services. For further review, please see chart. LABORATORY AND X-RAY DATA: As per chart. DISCHARGE INSTRUCTIONS: The patient was discharged to home in satisfactory condition on 10/16/2016. DIET: Diabetes mellitus type 2 diet. ACTIVITY: Weightbearing as tolerated left lower extremity. Follow MARCIE instruction sheets and special care instructions as noted. Follow up with Dr. Amaral in 2 weeks. The patient to call for appointment if one has not been made for you. DISCHARGE MEDICATIONS: Acetaminophen 1000 mg p.o. q. 8 hours for 21 days, aspirin 81 mg p.o. b.i.d. for 30 days, oxycodone 5-10 mg p.o. q. 4 hours p.r.n., Senna 2 tabs p.o. at bedtime. Resume home meds as listed.
== END 2016-10-16 12:26 | disposition home health service (06) | DRG 470 ==
LOC: EDBD 10:16 → C.EDA 10:19 → C.MSW 12:42 → ENRESERV 13:02
PROC: 0SRB0JZ Replacement of Left Hip Joint with Synthetic Substitute, Open Approach (ICD-10-PCS; principal; 2016-10-14 07:15)
DX: S72.009A Fracture of unspecified part of neck of unspecified femur, initial encounter for closed fracture (principal); E11.40 Type 2 diabetes mellitus with diabetic neuropathy, unspecified; I10 Essential (primary) hypertension; E03.9 Hypothyroidism, unspecified; E78.00 Pure hypercholesterolemia, unspecified; Z86.73 Personal history of transient ischemic attack (TIA), and cerebral infarction without residual deficits; Z87.891 Personal history of nicotine dependence; Z87.81 Personal history of (healed) traumatic fracture; W18.39XA Other fall on same level, initial encounter; Y93.89 Activity, other specified; Y92.69 Other specified industrial and construction area as the place of occurrence of the external cause; Y99.8 Other external cause status; Z79.899 Other long term (current) drug therapy; Z79.84 Long term (current) use of oral hypoglycemic drugs

== ENCOUNTER → 2016-11-24 | Outpatient (CLI) | payer OTHER, BC ==
[~2016-11-24] MED LIST changes: +ACET-24 PO; +ASPEC81 PO; +CHOL400C7 PO; -CHOLTAB3 PO; +RXC5 PO; +SNK PO
[2016-11-24 14:04] LABS: URINE APPEARANCE CLOUDY (CLEAR); URINE BILIRUBIN NEG (NEG); URINE COLOR YELLOW; URINE EPITHELIAL CELL AUTO 0-5 /lpf (0-5); URINE NITRITE NEG (NEG); URINE SPECIFIC GRAVITY 1.017 (1.000-1.030); UROBILINOGEN NEG (NEG)
[2016-11-24 14:07] LABS: MANUAL MICROSCOPIC REQUIRED? NO; REVIEW REQ? NO
== END | disposition home or self-care (01) ==
LOC: C.LABBC 09:55
PROVIDERS: ATTEND Physician Assistant
DX: R35.0 Frequency of micturition (principal)

== ENCOUNTER → 2016-12-28 | Outpatient (CLI) | payer BC ==
[2016-12-28 13:51] LABS: BLOOD UREA NITROGEN 18 mg/dl (7-18); BUN/CREATININE RATIO 20.9 (10-20); CALCIUM 9.5 mg/dl (8.5-10.1); CARBON DIOXIDE 28 mmol/L (21-32); CHLORIDE 104 mmol/L (98-107); CHOLESTEROL 121 mg/dl (0-200); CREATININE 0.87 mg/dl (0.60-1.20); GLUCOSE 100 mg/dl (70-99); POTASSIUM 4.2 mmol/L (3.5-5.1); SODIUM 139 mmol/L (136-145)
[2016-12-28 13:55] LABS: CHOLESTEROL/HDL RATIO 1.8; HDL CHOLESTEROL 69 mg/dl; LDL CHOLESTEROL CALCULATED 35 mg/dl; TRIGLYCERIDES 83 mg/dl (0-150); VERY LOW DENSITY LIPOPROT CALC 17 mg/dl
[2016-12-29 06:46] LABS: ESTIMATED AVERAGE GLUCOSE 111 mg/dl; HA1C FLAG Normal (Normal)
== END | disposition home or self-care (01) ==
LOC: C.LABBC 09:24
PROVIDERS: ATTEND Nurse Practitioner Family
DX: E11.9 Type 2 diabetes mellitus without complications (principal); M85.80 Other specified disorders of bone density and structure, unspecified site; I10 Essential (primary) hypertension; E78.00 Pure hypercholesterolemia, unspecified

== ENCOUNTER → 2017-01-04 | Outpatient (CLI) | payer BC ==
--- NOTE | 2017-01-05 07:25 | MAMMOGRAPHY REPORT ---
BILATERAL DIGITAL SCREENING MAMMOGRAM WITH CAD: 01/04/2017 CLINICAL HISTORY: Routine screening. Patient has no complaints. TECHNIQUE: Bilateral CC and MLO views were obtained. Current study was also evaluated with a Compute r Aided Detection (CAD) system. COMPARISON: Comparison is made to exams dated: 10/15/2015 mammogram, 10/09/2014 mammogram, 10/02/2013 january mogram, 09/26/2012 mammogram, 09/22/2011 mammogram - [facility], and 09/02/2007. BREAST COMPOSITION: There are scattered areas of fibroglandular density in both breasts. FINDINGS: There is stable nodularity in the superior aspect of each breast on the MLO views. No joss picious mass, architectural distortion or cluster of microcalcifications is seen. IMPRESSION: ACR BI-RADS CATEGORY 1: NEGATIVE There is no mammographic evidence of malignancy. A 1 year screening mammogram is recommended. The pa tient will receive written notification of the results. Approximately 10% of breast cancers are not detected with mammography. A negative mammographic report should not delay biopsy if a clinically suggestive mass is present. Shayy Liriano M.D. ay/:01/04/2017 14:57:54 Wash Plant Operator: Nori CURRIE(Alexandra)(M), [facility] letter sent: Normal 1/2 BI-RADS Code: ACR BI-RADS Category 1: Negative
== END | disposition home or self-care (01) ==
LOC: C.MAMM 14:03
PROVIDERS: ATTEND Obstetrics & Gynecology
DX: Z12.31 Encounter for screening mammogram for malignant neoplasm of breast (principal)

== ENCOUNTER 2017-02-01 13:57 | Emergency (ER) | payer BC ==
[~2017-02-01] VITALS: Ht 165.1 cm; Wt 76.6 kg
[2017-02-01] MEDS ORDERED: ONDANSETRON INJ 2 MG/ML 2 ML VIAL IV STA (14:06)
[2017-02-01] MEDS ORDERED: HYDROmorphone INJ 1 MG/ML SYR IV STA (14:06)
--- NOTE | 2017-02-01 14:08 | EMERGENCY ROOM VISIT NOTE ---
History Report prepared by Jacques: Chely Riggs Under the Supervision of: Dr. Alex Chauhan M.D. First contact with patient: 13:58 Chief Complaint: HIP PAIN Stated Complaint: HIP PAIN History of Present Illness The patient is a 66 year old white female with a past medical history of diabetes, hypertension, herniated disc, hip replacement, and hip fracture who presents to the ED with a cc of constant left sided hip pain beginning today. The patient states that she fell in October and broke her hip and had it replaced. She reports that it feels like she dislocated her left hip today after bending over and twisting the wrong way. This is the same hip she had replaced. Positive groin pain. Negative leg pain, falls, trauma, LOC. She is not on any blood thinners. Source of History: patient Onset: today Position: other (left hip) Timing: constant Associated Symptoms: No LOC Note: Positive groin pain. Negative leg pain, falls, trauma. Review of Systems See HPI for pertinent positives and negatives. A total of ten systems were reviewed and were otherwise negative. Past Medical & Surgical Medical Problems: (1) Diabetes (2) Herniated disc (3) Hip fracture (4) HTN (hypertension) (5) Hypothyroid (6) TIA (transient ischemic attack) Surgical Problems: (1) Hx of cholecystectomy Family History No pertinent family history Social History Smoking Status: Former Smoker Alcohol Use: none Drug Use: none Marital Status: Housing Status: lives with family Occupation Status: employed Current/Historical Medications Scheduled Amlodipine (Norvasc), 5 MG PO DAILY Ascorbic Acid (Ascorbic Acid), 250 MG PO DAILY Atorvastatin (Lipitor), 40 MG PO DAILY Cholecalciferol (Vitamin D 400 Iu), 400 INTER.UNIT PO DAILY Cyanocobalamin (Vitamin B-12), 1 TAB PO DAILY Levothyroxine Sodium (Levothyroxine Sodium), 88 MCG PO DAILY Lisinopril (Zestril), 40 MG PO DAILY Metformin Hcl (Glucophage), 1,000 MG PO BID Multivitamin (Multivitamin), 1 TAB PO DAILY Simvastatin (Zocor), 40 MG PO QPM Tramadol Hcl (Ultram), 50 MG PO Q8H Allergies Coded Allergies: No Known Allergies (Verified , 02/01/17) Physical Exam Vital Signs Date Time Temp Pulse Resp B/P (MAP) Pulse Ox O2 Delivery O2 Flow Rate FiO2 11/27/17 19:25 79 129/70 95 Room Air 02/01/17 18:48 81 16 120/67 94 Room Air 02/01/17 18:36 89 10 120/65 92 02/01/17 18:31 93 11 125/79 96 02/01/17 18:26 88 11 128/68 96 02/01/17 18:21 96 11 127/64 98 02/01/17 18:16 129/63 02/01/17 18:12 93 14 95 02/01/17 18:11 119/65 02/01/17 18:07 82 8 97 02/01/17 18:02 78 12 96 02/01/17 18:01 134/66 02/01/17 17:57 81 8 97 02/01/17 17:56 132/69 02/01/17 17:52 84 10 97 02/01/17 17:47 88 9 99 02/01/17 17:46 135/64 02/01/17 17:42 88 8 99 02/01/17 17:41 135/68 02/01/17 17:41 92 12 135/68 99 Nasal Cannula 2.0 02/01/17 17:37 86 17 100 02/01/17 17:36 143/74 02/01/17 17:32 103 5 100 02/01/17 17:31 160/74 02/01/17 17:30 88 7 160/74 98 Room Air 2.0 02/01/17 17:28 90 16 155/82 99 Nasal Cannula 2.0 02/01/17 17:27 91 11 100 02/01/17 17:22 102 15 100 02/01/17 17:17 89 11 99 02/01/17 17:12 88 15 98 02/01/17 17:07 86 13 99 02/01/17 17:02 89 13 98 02/01/17 16:57 78 9 98 02/01/17 16:52 87 16 98 02/01/17 16:47 87 10 99 02/01/17 16:42 95 14 98 02/01/17 16:37 83 17 99 02/01/17 16:32 93 11 99 02/01/17 16:30 92 12 136/97 99 Room Air 02/01/17 16:29 136/67 02/01/17 16:27 94 9 99 02/01/17 16:22 88 21 99 02/01/17 16:17 86 12 99 02/01/17 16:12 86 12 99 02/01/17 16:07 88 13 99 02/01/17 16:02 86 14 95 02/01/17 15:57 87 15 96 02/01/17 15:52 90 13 97 02/01/17 15:47 90 14 97 02/01/17 15:42 94 16 97 02/01/17 15:37 96 10 98 02/01/17 15:36 96 13 143/62 96 Nasal Cannula 2.0 02/01/17 15:32 93 10 99 02/01/17 15:32 93 16 143/62 94 Room Air 02/01/17 15:27 91 10 99 02/01/17 15:22 93 12 99 02/01/17 15:17 89 11 99 02/01/17 15:14 143/62 02/01/17 15:12 104 25 98 02/01/17 15:07 93 28 93 02/01/17 15:03 93 02/01/17 15:02 92 19 98 02/01/17 14:17 88 18 169/94 98 Room Air 02/01/17 14:08 169/94 Physical Exam GENERAL: Awake, alert, uncomfortable and in pain HENT: Normocephalic, atraumatic. EYES: Normal conjunctiva. Sclera non-icteric. NECK: Supple. No nuchal rigidity. FROM. RESPIRATORY: CTAB, no rhonchi, wheezing, crackles CARDIAC: RRR, no MRG ABDOMEN: Soft, NTND, BS+ MSK: No chest wall TTP, no LE edema. LLE is adducted and internally rotated, pain over the left hip, leg is mildly short compared to the right. She is NVI distally. SP/DP/Tib nerves. NEURO: GCS 15, CN 2-12 intact, moves all 4s on command SKIN: No rash or jaundice noted. Medical Decision & Procedures ER Provider Diagnostic Interpretation: Radiology results as stated below per my review and radiologist interpretation: LEFT HIP 2 VIEWS FINDINGS: Oblique and crosstable lateral portable views of left hip are compared to study dated 10/14/2016. The skeletal structures are osteopenic. No fracture is seen. There is posterior dislocation of the femoral component of the hip arthroplasty. The overlying soft tissues are normal in appearance. IMPRESSION: 1. There is posterior dislocation of the femoral component of the left hip arthroplasty. 2. No fracture is seen on the provided images. Electronically signed by: Jose Sommers M.D. 02/01/2017 3:03 PM Dictated Date/Time: 02/01/2017 3:02 PM L PELVIS/UNILATERAL HIP 1 VIEW FINDINGS: Postsurgical changes of total left hip arthroplasty. No hardware complication. No acute fracture or subluxation. The bony pelvis is intact. Right hip joint congruent. IMPRESSION: No evidence of acute osseous injury. Expected postsurgical changes of total left hip arthroplasty. Electronically signed by: Steve Jalloh M.D. 02/01/2017 6:57 PM Dictated Date/Time: 02/01/2017 6:56 PM Laboratory Results 02/01/17 14:10 Red Blood Count 4.34, Mean Corpuscular Volume 90.6, Mean Corpuscular Hemoglobin 29.3, Mean Corpuscular Hemoglobin Concent 32.3, Mean Platelet Volume 10.1, Neutrophils (%) (Auto) 55.6, Lymphocytes (%) (Auto) 37.6, Monocytes (%) (Auto) 5.1, Eosinophils (%) (Auto) 1.2, Basophils (%) (Auto) 0.3, Neutrophils # (Auto) 6.59, Lymphocytes # (Auto) 4.46, Monocytes # (Auto) 0.61, Eosinophils # (Auto) 0.14, Basophils # (Auto) 0.04 02/01/17 14:10 Test 02/01/17 14:10 White Blood Count 11.86 K/uL (4.8-10.8) Red Blood Count 4.34 M/uL (4.2-5.4) Hemoglobin 12.7 g/dL (12.0-16.0) Hematocrit 39.3 % (37-47) Mean Corpuscular Volume 90.6 fL (80-100) Mean Corpuscular Hemoglobin 29.3 pg (25-34) Mean Corpuscular Hemoglobin Concent 32.3 g/dl (32-36) Platelet Count 350 K/uL (130-400) Mean Platelet Volume 10.1 fL (7.4-10.4) Neutrophils (%) (Auto) 55.6 % Lymphocytes (%) (Auto) 37.6 % Monocytes (%) (Auto) 5.1 % Eosinophils (%) (Auto) 1.2 % Basophils (%) (Auto) 0.3 % Neutrophils # (Auto) 6.59 K/uL (1.4-6.5) Lymphocytes # (Auto) 4.46 K/uL (1.2-3.4) Monocytes # (Auto) 0.61 K/uL (0.11-0.59) Eosinophils # (Auto) 0.14 K/uL (0-0.5) Basophils # (Auto) 0.04 K/uL (0-0.2) RDW Standard Deviation 42.8 fL (36.4-46.3) RDW Coefficient of Variation 13.0 % (11.5-14.5) Immature Granulocyte % (Auto) 0.2 % Immature Granulocyte # (Auto) 0.02 K/uL (0.00-0.02) Prothrombin Time 10.4 SECONDS (9.0-12.0) Prothromb Time International Ratio 1.0 (0.9-1.1) Activated Partial Thromboplast Time 25.9 SECONDS (21.0-31.0) Partial Thromboplastin Ratio 1.0 Anion Gap 13.0 mmol/L (3-11) Est Creatinine Clear Calc Drug Dose 55.5 ml/min Estimated GFR () 66.4 Estimated GFR (Non- 57.3 BUN/Creatinine Ratio 10.4 (10-20) Calcium Level 9.4 mg/dl (8.5-10.1) Laboratory results reviewed by me Medications Administered Medications (Trade) Dose Ordered Sig/Shayla Route Start Time Stop Time Status Last Admin Dose Admin Ondansetron HCl (Zofran Inj) 4 mg NOW STAT IV 02/01/17 14:06 02/01/17 14:09 DC 02/01/17 14:26 4 MG Hydromorphone HCl (Dilaudid Inj) 1 mg NOW STAT IV 02/01/17 14:06 02/01/17 14:09 DC 02/01/17 14:26 1 MG Hydromorphone HCl (Dilaudid Inj) 0.5 mg STK-MED ONCE .ROUTE 02/01/17 14:31 02/01/17 14:32 DC 02/01/17 14:35 0.5 MG Hydromorphone HCl (Dilaudid Inj) 0.5 mg NOW STAT IV 02/01/17 14:39 02/01/17 14:40 DC 02/01/17 16:30 0.5 MG Procedure Procedural Sedation Indication Hip Dislocation. Total time: 15 minutes. Written consent was obtained after the risks and benefits were explained to the patient, including, but not limited to aspiration, allergic reaction, breathing difficulties, cardiac complications, vomiting, pain, event recall, bleeding, and /or infection. Pre-sedation examination and paperwork completed. The patient was on 100% oxygen via NRB prior to the procedure. Continous end tidal CO2 monitoring, pulse oximetry, and cardiac monitoring were utilized. Suction, airway equipment, medications, respiratory equipment, and appropriate personnel were prepared prior to the initiation of the procedure. A time out was taken. Sedation was achieved utilizing 100 mg of Propofol. After I observed the patient had reached the appropriate level of sedation the main procedure was performed without complication. Sedation was discontinued and the monitoring continued. The patient recovered quickly from the effects of the medication without complication or adverse event. ED Course 1358: The patient was evaluated in room A3. A complete history and physical exam was performed. 1515: I spoke to Dr. Bullard of orthopedics. I will reduce the hip at bedside. 1728: I began the procedural sedation. 173: Procedure began. 174: Procedure end. 192: I reevaluated and updated the patient. 1935: I reevaluated the patient. Discussed results and discharge instructions: She verbalized understanding and agreement. The patient is ready for discharge. Medical Decision Triage Nursing notes reviewed. The patient's presentation and history were concerning for fracture, dislocation , sprain, strain. Patient was seen and evaluated the bedside. Per the patient she states that she was doing some decorating around the house and she states that she twisted did not fall had severe left-sided hip pain. Patient states she doesn't have any numbness tingling or weakness in the left lower extremity but her mobility is limited secondary to pain. Patient does not take any blood thinning medications. Patient states she last ate around 8:30 this morning. Patient did not fall or hit her head and denies any LOC. Patient's left lower extremity was neurovascularly intact distally. Patient did have plain films and blood work and pain control. Patient's blood work was fairly unremarkable. Patient did have a left hip film show a posterior dislocation without any acute periprosthetic fracture. Patient was neurovascular intact. I did speak with the on-call orthopedist he stated he would come in to help with the procedure. Patient was consented and the patient was set up for conscious sedation. Patient underwent the procedure was successful relocation of the left hip. She was told that she can do weightbearing as tolerated was told to follow-up in one week with her orthopedist and to keep her leg and the knee immobilizer at all times. Patient was agreeable to the plan of care. Patient was given strict follow-up, discharge , and return precautions. All questions were answered. Patient was deemed suitable for outpatient follow-up at this time. Patient agreed with the plan of care and was safely discharged home. Medication Reconcilliation Current Medication List: was personally reviewed by me Blood Pressure Screening Patient's blood pressure: Elevated blood pressure Blood pressure disposition: Elevated BP felt to be situational Consults Time Called: 1510 Consulting Physician: Dr. Bullard - Ortho Returned Call: [phone]: I spoke to Dr. Bullard of orthopedics. I will reduce the hip at bedside. Impression Primary Impression: Dislocation of left hip Additional Impression: Left hip pain Scribe Attestation The scribe's documentation has been prepared under my direction and personally reviewed by me in its entirety. I confirm that the note above accurately reflects all work, treatment, procedures, and medical decision making performed by me. Departure Information Dispostion Home / Self-Care Prescriptions Tramadol Hcl (ULTRAM) 50 Mg Tab 50 MG PO Q8H, #15 TAB PRN PAIN Prov: Alex Chauhan M.D. 02/01/17 Referrals Shania Villatoro P.A. (PCP) Patient Instructions ED Hip Replace Dislocation Reduc, My [facility] Additional Instructions Please return to the emergency department if you have worsening or recurrent symptoms not amenable to at-home treatment. Please call for a follow-up appointment with her primary care physician. Please take your medications as prescribed. If you have other concerns and/or complaints please feel free to also call your primary care physician's office or return the ED for further evaluation, management, and treatment. You received narcotic or benzodiazepene medication while in the emergency room today. This is an addictive medication that may cause drowziness as well as constipation. Do not drive, operate heavy machinery, or drink alcohol under the influence of this medication. You may take 600 mg Ibuprofen every 6 hours as needed for pain with food for no more than 2 consecutive days. You may take tylenol 1000 mg every 6 hours as needed for pain. You may take motrin and tylenol separately or at the same time. Take your medications as prescribed.. You have been examined and treated today on an emergency basis only. This is not a substitute for, or an effort to provide, complete comprehensive medical care. It is impossible to recognize and treat all injuries or illnesses in a single emergency department visit. It is therefore important that you follow up closely with [facility], your PCP, and/or your specialist(s). Call as soon as possible for an appointment. Thank you for your time and consideration. I look forward to speaking with you again soon. Please don't hesitate to call us if you have any questions. Problem Qualifiers
[2017-02-01 14:17] VITALS: Ht 165.1 cm; Wt 76.6 kg
[2017-02-01 14:26] LABS: BASO % 0.3 %; BASO ABS # 0.04 K/uL (0-0.2); COMPLETE YES; EOS % 1.2 %; HEMATOCRIT 39.3 % (37-47); IG% 0.2 %; LYMPH % 37.6 %; LYMPH ABS # 4.46 K/uL (1.2-3.4); MEAN CELL VOLUME 90.6 fL (80-100); MEAN CORPUSCULAR HEMOGLOBIN 29.3 pg (25-34); MEAN CORPUSCULAR HGB CONC 32.3 g/dl (32-36); MEAN PLATELET VOLUME 10.1 fL (7.4-10.4); MONO % 5.1 %; NEUT % 55.6 %; PLATELET COUNT 350 K/uL (130-400); RED BLOOD COUNT 4.34 M/uL (4.2-5.4); WHITE BLOOD COUNT 11.86 K/uL (4.8-10.8)
[2017-02-01] MEDS ORDERED: HYDROmorphone INJ 0.5 MG/0.5 ML SYR ONE (14:31)
[2017-02-01 14:32] LABS: PROTHROMBIN TIME (PATIENT) 10.4 SECONDS (9.0-12.0)
[2017-02-01] MEDS ORDERED: HYDROmorphone INJ 0.5 MG/0.5 ML SYR IV STA (14:39)
[2017-02-01 14:41] LABS: BUN/CREATININE RATIO 10.4 (10-20); CALCIUM 9.4 mg/dl (8.5-10.1); CREATININE 1.02 mg/dl (0.60-1.20); POTASSIUM 3.7 mmol/L (3.5-5.1)
--- NOTE | 2017-02-01 15:04 | DIAGNOSTIC IMAGING REPORT ---
LEFT HIP 2 VIEWS CLINICAL HISTORY: Left hip injury. FINDINGS: Oblique and crosstable lateral portable views of left hip are compared to study dated 10/14/2016. The skeletal structures are osteopenic. No fracture is seen. There is posterior dislocation of the femoral component of the hip arthroplasty. The overlying soft tissues are normal in appearance. IMPRESSION: 1. There is posterior dislocation of the femoral component of the left hip arthroplasty. 2. No fracture is seen on the provided images. Electronically signed by: Jose Sommers M.D. 02/01/2017 3:03 PM Dictated Date/Time: 02/01/2017 3:02 PM
[2017-02-01 15:36] VITALS: BP 143/62; PULSE 96; O2SAT 96
[2017-02-01] MEDS ORDERED: KETAMINE HCL INJ 50 MG/ML 10 ML VIAL IV STA (15:48)
[2017-02-01] MEDS ORDERED: PROPOFOL IV EMULSION 10 MG/ML 20 ML VIAL IV STA (15:48)
[2017-02-01] MEDS ORDERED: ATOR-24 PO (16:44)
[2017-02-01] MEDS ORDERED: CYAN250T PO (16:45)
[2017-02-01 17:28] VITALS: BP 155/82; PULSE 90; O2SAT 99
[2017-02-01 17:30] VITALS: BP 160/74; PULSE 88; O2SAT 98
--- NOTE | 2017-02-01 17:59 | Orthopedic Consultation ---
Orthopedic Consultation Date of Consultation: Feb 01, 2017. Attending Physician: Reason for Consultation: Left total hip dislocation History of Present Illness The patient is a 66-year-old female who had a left total hip arthroplasty performed by Dr. Amaral in October. She had done well postoperatively. No complaints until today where she was putting up some [place] decorations that down to pick something up and felt the hip dislocate. Currently complaining of left hip pain. Denies radicular pain. Denies neurologic symptoms. Denies previous dislocation. Past Medical/Surgical History Medical Problems: (1) Fall Status: Acute (2) Fracture of femoral neck, right Status: Acute Family History No pertinent family history Social History Smoking Status: Former Smoker Drug Use: none Marital Status: Housing Status: lives with family Occupation Status: employed Allergies Coded Allergies: No Known Allergies (Verified , 02/01/17) Home Medications Scheduled Amlodipine (Norvasc), 5 MG PO DAILY Ascorbic Acid (Ascorbic Acid), 250 MG PO DAILY Atorvastatin (Lipitor), 40 MG PO DAILY Cholecalciferol (Vitamin D 400 Iu), 400 INTER.UNIT PO DAILY Cyanocobalamin (Vitamin B-12), 1 TAB PO DAILY Levothyroxine Sodium (Levothyroxine Sodium), 88 MCG PO DAILY Lisinopril (Zestril), 40 MG PO DAILY Metformin Hcl (Glucophage), 1,000 MG PO BID Multivitamin (Multivitamin), 1 TAB PO DAILY Simvastatin (Zocor), 40 MG PO QPM Physical Exam Date Time Temp Pulse Resp B/P (MAP) Pulse Ox O2 Delivery O2 Flow Rate FiO2 02/01/17 17:47 88 9 99 02/01/17 17:46 135/64 02/01/17 17:42 88 8 99 02/01/17 17:41 135/68 02/01/17 17:41 92 12 135/68 99 Nasal Cannula 2.0 02/01/17 17:37 86 17 100 02/01/17 17:36 143/74 02/01/17 17:32 103 5 100 02/01/17 17:31 160/74 02/01/17 17:30 88 7 160/74 98 Room Air 2.0 02/01/17 17:28 90 16 155/82 99 Nasal Cannula 2.0 02/01/17 17:27 91 11 100 02/01/17 17:22 102 15 100 02/01/17 17:17 89 11 99 02/01/17 17:12 88 15 98 02/01/17 17:07 86 13 99 02/01/17 17:02 89 13 98 02/01/17 16:57 78 9 98 02/01/17 16:52 87 16 98 02/01/17 16:47 87 10 99 02/01/17 16:42 95 14 98 02/01/17 16:37 83 17 99 02/01/17 16:32 93 11 99 02/01/17 16:30 92 12 136/97 99 Room Air 02/01/17 16:29 136/67 02/01/17 16:27 94 9 99 02/01/17 16:22 88 21 99 02/01/17 16:17 86 12 99 02/01/17 16:12 86 12 99 02/01/17 16:07 88 13 99 02/01/17 16:02 86 14 95 02/01/17 15:57 87 15 96 02/01/17 15:52 90 13 97 02/01/17 15:47 90 14 97 02/01/17 15:42 94 16 97 02/01/17 15:37 96 10 98 02/01/17 15:36 96 13 143/62 96 Nasal Cannula 2.0 02/01/17 15:32 93 10 99 02/01/17 15:32 93 16 143/62 94 Room Air 02/01/17 15:27 91 10 99 02/01/17 15:22 93 12 99 02/01/17 15:17 89 11 99 02/01/17 15:14 143/62 02/01/17 15:12 104 25 98 02/01/17 15:07 93 28 93 02/01/17 15:03 93 02/01/17 15:02 92 19 98 02/01/17 14:17 88 18 169/94 98 Room Air 02/01/17 14:08 169/94 Left lower extremity: 2+ dorsalis pedis pulse. Light touch sensation and motor function is intact. The limb is shortened and internally rotated General Appearance: WD/WN Head: normocephalic Eyes: normal inspection ENT: normal ENT inspection Respiratory/Chest: chest non-tender Cardiovascular: regular rate, rhythm Laboratory Results Last 24 Hours Test 02/01/17 14:10 White Blood Count 11.86 K/uL Red Blood Count 4.34 M/uL Hemoglobin 12.7 g/dL Hematocrit 39.3 % Mean Corpuscular Volume 90.6 fL Mean Corpuscular Hemoglobin 29.3 pg Mean Corpuscular Hemoglobin Concent 32.3 g/dl Platelet Count 350 K/uL Mean Platelet Volume 10.1 fL Neutrophils (%) (Auto) 55.6 % Lymphocytes (%) (Auto) 37.6 % Monocytes (%) (Auto) 5.1 % Eosinophils (%) (Auto) 1.2 % Basophils (%) (Auto) 0.3 % Neutrophils # (Auto) 6.59 K/uL Lymphocytes # (Auto) 4.46 K/uL Monocytes # (Auto) 0.61 K/uL Eosinophils # (Auto) 0.14 K/uL Basophils # (Auto) 0.04 K/uL RDW Standard Deviation 42.8 fL RDW Coefficient of Variation 13.0 % Immature Granulocyte % (Auto) 0.2 % Immature Granulocyte # (Auto) 0.02 K/uL Prothrombin Time 10.4 SECONDS Prothromb Time International Ratio 1.0 Activated Partial Thromboplast Time 25.9 SECONDS Partial Thromboplastin Ratio 1.0 Sodium Level 138 mmol/L Potassium Level 3.7 mmol/L Chloride Level 103 mmol/L Carbon Dioxide Level 22 mmol/L Anion Gap 13.0 mmol/L Blood Urea Nitrogen 11 mg/dl Creatinine 1.02 mg/dl Est Creatinine Clear Calc Drug Dose 55.5 ml/min Estimated GFR () 66.4 Estimated GFR (Non- 57.3 BUN/Creatinine Ratio 10.4 Random Glucose 101 mg/dl Calcium Level 9.4 mg/dl Assessment & Plan X-rays demonstrate a posterior dislocated left total hip arthroplasty. She underwent to moderate sedation per Dr. Chauhan in the emergency room, I then performed a closed reduction of the hip and had a good audible clunk. I had to use a large amount of force to get the hip reduced. The limb lengths and rotation were restored back to normal after the reduction. She was neurologically intact after the reduction. She will be placed in a knee immobilizer. She may be weightbearing as tolerated. She is to follow-up with Dr. Amaral in the next week or so.
--- NOTE | 2017-02-01 18:01 | [facility] Operative Report ---
Operative Report Operative Date Feb 01, 2017. Pre-Operative Diagnosis Left total hip dislocation Post-Operative Diagnosis Same Procedure(s) Performed Closed reduction left total hip Surgeon mitul Clinical Research Specialist Surgeon(s) none Estimated Blood Loss none Findings As above Anesthesia moderate sedation Complication(s) None Disposition Indications 66-year-old female who underwent a uncomplicated left total hip arthroplasty in October. She was hanging some [place] recreations bent down to pick something up and felt an audible clunk and the hip dislocate. This is the first time she has had a hip dislocation. Plan is for closed reduction. Description of Procedure Risks benefits and alternatives to the procedure were discussed including but not limited to pain, stiffness, fracture, failure to achieve reduction, need for later surgery, damage to blood vessels, damage to nerves, risks of the anesthesia were discussed and they wished to proceed. The patient was identified. The laterality was confirmed. The patient was given sedation. Once there properly sedated I performed a closed reduction pulling 90/90 traction. There was a palpable and audible clunk. The leg lengths were restored. There is good motion at the hip. Post reduction x-rays were obtained and demonstrated adequate reduction of the total hip dislocation. I attest to the content of the Intraoperative Record and any orders documented therein. Any exceptions are noted below.
[2017-02-01 18:48] VITALS: BP 120/67; PULSE 81; O2SAT 94
--- NOTE | 2017-02-01 18:59 | DIAGNOSTIC IMAGING REPORT ---
L PELVIS/UNILATERAL HIP 1 VIEW CLINICAL HISTORY: 66 years-old Female presenting with s/p reduction. TECHNIQUE: Single frontal view the pelvis and crosstable lateral view of the left hip were obtained. COMPARISON: 10/14/2016. FINDINGS: Postsurgical changes of total left hip arthroplasty. No hardware complication. No acute fracture or subluxation. The bony pelvis is intact. Right hip joint congruent. IMPRESSION: No evidence of acute osseous injury. Expected postsurgical changes of total left hip arthroplasty. Electronically signed by: Steve Jalloh M.D. 02/01/2017 6:57 PM Dictated Date/Time: 02/01/2017 6:56 PM
[2017-02-01] MEDS ORDERED: TRAM-453 PO (19:30)
[2017-02-01 20:22] VITALS: BP 122/60; PULSE 88; O2SAT 96
== END 2017-02-01 20:23 | disposition home or self-care (01) ==
LOC: EDBD 13:57 → C.EDA 13:58
DX: T84.021A Dislocation of internal left hip prosthesis, initial encounter (principal); X58.XXXA Exposure to other specified factors, initial encounter; M25.552 Pain in left hip; I10 Essential (primary) hypertension; E11.9 Type 2 diabetes mellitus without complications; E03.9 Hypothyroidism, unspecified; Z96.642 Presence of left artificial hip joint; Z87.81 Personal history of (healed) traumatic fracture; Z86.73 Personal history of transient ischemic attack (TIA), and cerebral infarction without residual deficits; Z90.49 Acquired absence of other specified parts of digestive tract; Z87.891 Personal history of nicotine dependence; Z79.84 Long term (current) use of oral hypoglycemic drugs; Z79.899 Other long term (current) drug therapy

== ENCOUNTER → 2017-03-15 | Outpatient (CLI) | payer BC ==
[~2017-03-15] MED LIST changes: -ACET-24 PO; -ASPEC81 PO; +ATOR-24 PO; +CYAN250T PO; -RXC5 PO; -SNK PO
== END | disposition home or self-care (01) ==
LOC: C.LABBC 15:01
PROVIDERS: ATTEND Family Medicine Adult Medicine
DX: E03.9 Hypothyroidism, unspecified (principal); R00.0 Tachycardia, unspecified

== ENCOUNTER → 2017-04-20 | Outpatient (CLI) | payer BC ==
--- NOTE | 2017-04-20 10:42 | DIAGNOSTIC IMAGING REPORT ---
L SHOULDER MIN 2 VIEWS ROUTINE CLINICAL HISTORY: Left shoulder pain. COMPARISON: None FINDINGS: Alignment of the left shoulder is anatomic. There is moderate osteoarthritis of the left acromioclavicular joint. There is mild osteoarthritis of the left glenohumeral joint. Minimal calcific density is noted along the superolateral aspect of the left humeral head. IMPRESSION: 1. No acute fracture. 2. Moderate osteoarthritis of the left acromioclavicular joint and mild osteoarthritis of the left glenohumeral joint. 3. Possible mild calcific tendinitis of the left rotator cuff. Electronically signed by: Dickson Givens M.D. 04/20/2017 10:41 AM Dictated Date/Time: 04/20/2017 10:40 AM
== END | disposition home or self-care (01) ==
LOC: C.RADBC 10:19
PROVIDERS: ATTEND Family Medicine Adult Medicine
DX: M25.512 Pain in left shoulder (principal); M19.012 Primary osteoarthritis, left shoulder

== ENCOUNTER → 2017-04-22 | Outpatient (CLI) | payer BC ==
--- NOTE | 2017-04-22 09:18 | DIAGNOSTIC IMAGING REPORT ---
LEFT AXILLARY ULTRASOUND CLINICAL HISTORY: Left axillary pain. Previous fall. COMPARISON STUDY: Left shoulder radiographs April 20, 2017. TECHNIQUE: Sonography of the left axilla was performed. FINDINGS: No mass, fluid collection, hematoma or lymphadenopathy was identified within the left axilla. IMPRESSION: No sonographic abnormality within the left axilla. Electronically signed by: Dickson Givens M.D. 04/22/2017 9:17 AM Dictated Date/Time: 04/22/2017 9:13 AM
== END | disposition home or self-care (01) ==
LOC: C.ULTRBC 08:55
PROVIDERS: ATTEND Family Medicine Adult Medicine
DX: M25.512 Pain in left shoulder (principal)

== ENCOUNTER → 2017-05-04 | Outpatient (CLI) | payer BC | END | disposition home or self-care (01) | LOC: C.LABBC 13:22 | PROVIDERS: ATTEND Family Medicine Adult Medicine | DX: E03.9 Hypothyroidism, unspecified (principal) ==